=== PATIENT | male | born 2000 | race Caucasian/White ===

== ENCOUNTER 2023-10-14 04:28 | Emergency (ER) | payer OTHER ==
[2023-10-14] MEDS: Ketorolac 30 MG/ML SDV IVPUSH ONE (04:58)
[2023-10-14] MEDS: Ondansetron 4 MG/2 ML SDV IVPUSH ONE (04:58)
[2023-10-14 05:28] LABS: BASOPHILS ABSOLUTE AUTO 0.03 K/uL (0.00-0.20); BASOPHILS PERCENT AUTO 0.3 % (0.0-1.0); EOSINOPHILS ABSOLUTE AUTO 0.07 K/uL (0.00-0.45); EOSINOPHILS PERCENT AUTO 0.7 % (0.0-6.0); HEMOGLOBIN 13.8 g/dL (14.0-18.0); IMMATURE GRAN ABSOLUTE AUTO 0.02 K/uL (0.00-0.05); IMMATURE GRAN PERCENT AUTO 0.2 % (0.0-0.4); LYMPHOCYTES ABSOLUTE AUTO 1.79 K/uL (1.00-4.80); MEAN CORPUSCULAR HEMOGLOBIN 30.1 pg (28.0-32.0); MEAN CORPUSCULAR HGB CONC 33.7 g/dL (32.0-36.0); MEAN CORPUSCULAR VOLUME 89.3 fL (83.0-99.0); MEAN PLATELET VOLUME 11.5 fL (9.4-12.4); MONOCYTES ABSOLUTE AUTO 0.58 K/uL (0.00-0.80); MONOCYTES PERCENT AUTO 6.2 % (0.0-8.0); NEUTROPHILS ABSOLUTE AUTO 6.93 K/uL (1.80-7.70); NEUTROPHILS PERCENT AUTO 73.6 % (41.0-71.0); PLATELET COUNT,PLT 212 K/uL (150-400); RED BLOOD CELL COUNT 4.59 M/uL (4.52-5.90); WHITE BLOOD CELL COUNT,WBC 9.42 K/uL (3.9-11.3)
[2023-10-14 05:59] LABS: A/G RATIO 1.1 (0.9-1.6); ALBUMIN 3.7 g/dL (3.4-5.0); BILIRUBIN TOTAL 0.3 mg/dL (0.2-1.0); CALCIUM 8.7 mg/dL (8.5-10.1); CARBON DIOXIDE,CO2 26.9 mmol/L (21.0-32.0); CREATININE 1.1 mg/dL (0.8-1.3); EST CRCL DRUG DOSING (CG) 109.34 mL/min; POTASSIUM,K 3.7 mmol/L (3.5-5.1); PROTEIN TOTAL,TP 7.2 g/dL (6.4-8.2)
[2023-10-14] MEDS: Iopamidol 755 MG/ML 500 ML Multipack Bottle IVPUSH STA (06:13)
== END 2023-10-14 06:58 | disposition home or self-care (01) ==
LOC: MW.ED 04:28
DX: R10.33 Periumbilical pain (principal)
CPT/HCPCS: 36415; 74177; 80053; 85025; 96374; 96375; 99284; J1885; J2405; Q9967

== ENCOUNTER 2025-06-01 05:01 | Emergency (ER) | payer OTHER ==
[2025-06-01 05:14] LABS: BASOPHILS ABSOLUTE AUTO 0.06 K/uL (0.00-0.20); BASOPHILS PERCENT AUTO 0.8 % (0.0-1.0); EOSINOPHILS ABSOLUTE AUTO 0.17 K/uL (0.00-0.45); EOSINOPHILS PERCENT AUTO 2.3 % (0.0-6.0); IMMATURE GRAN ABSOLUTE AUTO 0.01 K/uL (0.00-0.05); IMMATURE GRAN PERCENT AUTO 0.1 % (0.0-0.4); LYMPHOCYTES ABSOLUTE AUTO 3.20 K/uL (1.00-4.80); LYMPHOCYTES PERCENT AUTO 42.4 % (24.0-44.0); MEAN PLATELET VOLUME 11.0 fL (9.4-12.4); MONOCYTES ABSOLUTE AUTO 0.61 K/uL (0.00-0.80); MONOCYTES PERCENT AUTO 8.1 % (0.0-8.0); NEUTROPHILS ABSOLUTE AUTO 3.50 K/uL (1.80-7.70); NEUTROPHILS PERCENT AUTO 46.3 % (41.0-71.0); NRBC ABSOLUTE 0.00 K/uL (0.00-0.02); NRBC PERCENT 0.0 /100WBC (0.0-0.2); PLATELET COUNT,PLT 241 K/uL (150-400); RED BLOOD CELL COUNT 4.99 M/uL (4.52-5.90); WHITE BLOOD CELL COUNT,WBC 7.55 K/uL (3.9-11.3)
[2025-06-01] MEDS: Ketorolac 30 MG/ML SDV IVPUSH ONE (05:17)
[2025-06-01] MEDS: Ondansetron 4 MG/2 ML SDV IVPUSH ONE (05:17)
[2025-06-01] MEDS: Sodium Chloride 0.9% 2.5 ML Syringe FLUSH PRN (05:19)
[2025-06-01] MEDS: Sodium Chloride 0.9% 10 ML Syringe FLUSH PRN (05:19)
[2025-06-01 05:36] LABS: A/G RATIO 1.3 (0.9-1.6); ALANINE AMINOTRANSFERASE,ALT 33.0 IU/L (14-63); ASPARTATE AMNIOTRANSFERASE,AST 15.0 IU/L (15-37); BILIRUBIN TOTAL 0.3 mg/dL (0.2-1.0); BLOOD UREA NITROGEN,BUN 18.0 mg/dL (7.0-18.0); CARBON DIOXIDE,CO2 29.0 mmol/L (21.0-32.0); CHLORIDE,CL 102.0 mmol/L (98-107); CREATININE 1.1 mg/dL (0.8-1.3); EST CRCL DRUG DOSING (CG) 104.15 mL/min; ESTIMATED GFR 94.0 mL/min (>60); GLUCOSE RANDOM 96.0 mg/dL (74-106); POTASSIUM,K 4.3 mmol/L (3.5-5.1); PROTEIN TOTAL,TP 7.6 g/dL (6.4-8.2); SODIUM,NA 140.0 mmol/L (136-148)
[2025-06-01 06:07] LABS: APPEARANCE,URINE CLEAR; GLUCOSE,URINE NEGATIVE (NEGATIVE); OCCULT BLOOD,URINE NEGATIVE (NEGATIVE)
[2025-06-01] MEDS: Iopamidol 755 MG/ML 500 ML Multipack Bottle IVPUSH STA (06:09)
[2025-06-01] MEDS: Alum Hydrox/Mag Hydrox/Simeth 15 ML, Lidocaine 2% 5 ML PO ONE (11:17)
== END 2025-06-01 11:22 | disposition home or self-care (01) ==
LOC: MW.ED 05:01
DX: R10.13 Epigastric pain (principal)
CPT/HCPCS: 36415; 74177; 76705; 80053; 81003; 83690; 84484; 85025; 96374; 96375; 99284; J1885; J2405; J3490; Q9967; A9270-GY